=== PATIENT | male | born 1985 | race Caucasian/White ===

== ENCOUNTER 2023-01-21 22:36 | Emergency (ER) | payer OTHER ==
[~2023-01-21] VITALS: Ht 182.9 cm; Wt 83.9 kg
[2023-01-21 22:45] VITALS: BP 133/72; TEMP 98.4
[2023-01-22 00:32] VITALS: O2SAT 96
== END 2023-01-22 00:33 | disposition home or self-care (01) ==
LOC: ER 22:55
DX: Z43.3 Encounter for attention to colostomy (principal); Z60.2 Problems related to living alone
CPT/HCPCS: 99283; A4362